=== PATIENT | female | born 1990 | race Caucasian/White ===

== ENCOUNTER 2017-09-09 09:50 | Emergency (ER) | payer MEDICARE, MEDICAID ==
[~2017-09-09] VITALS: Ht 154.9 cm; Wt 82.0 kg
[~2017-09-09 09:50] MED LIST: BACL10TA PO; CEPH500C5 PO; FLUC100T8 PO; FLUO10CA51 PO; LEVA15HF4 INH; OMEP20TA5 PO; ONDA8TAB9 PO; PER10325T PO; PHEN-873 PO; TRAM50TA2 PO
[2017-09-09 10:05] VITALS: BP 121/67
[2017-09-09] MEDS ORDERED: ketorolac trometh inj. 60 MG/2 ML VIAL IM ONE (10:35)
[2017-09-09] MEDS ORDERED: cyclobenzaprine 10mg tablet PO ONE (10:35)
[2017-09-09] MEDS ORDERED: NAPR-56 PO (11:11)
[2017-09-09] MEDS ORDERED: METH-360 PO (11:11)
== END 2017-09-09 11:18 | disposition home or self-care (01) ==
LOC: ER 09:50
DX: R07.81 Pleurodynia (principal); M41.9 Scoliosis, unspecified; J45.909 Unspecified asthma, uncomplicated; G89.29 Other chronic pain; Z98.51 Tubal ligation status; Z98.890 Other specified postprocedural states; Z79.899 Other long term (current) drug therapy
CPT/HCPCS: 71046; 96372; 99284; J1885

== ENCOUNTER 2017-09-14 16:10 | Emergency (ER) | payer MEDICARE, MEDICAID ==
[~2017-09-14] VITALS: Ht 154.9 cm; Wt 82.0 kg
[~2017-09-14 16:10] MED LIST changes: +METH-360 PO; +NAPR-56 PO
[2017-09-14] MEDS ORDERED: HYDROmorphone 1 mg/ml syringe IM ONE (16:25)
[2017-09-14] MEDS ORDERED: CLIN300C53 PO (16:26)
[2017-09-14] MEDS ORDERED: morphine 4 MG/ML inj SYRINge IM ONE (16:50)
[2017-09-14] MEDS ORDERED: ondansetron 4mg rapidly disintigrating tab PO ONE (16:50)
[2017-09-14] MEDS ORDERED: morphine 8mg/ml inj. syringe IM ONE (17:20)
[2017-09-14 17:37] VITALS: BP 133/80
== END 2017-09-14 17:45 | disposition home or self-care (01) ==
LOC: ER 16:12
DX: K08.89 Other specified disorders of teeth and supporting structures (principal); G89.29 Other chronic pain; Z98.51 Tubal ligation status; Z98.890 Other specified postprocedural states; Z79.899 Other long term (current) drug therapy
CPT/HCPCS: 96372; 99283; J2270